=== PATIENT | male | born 1955 | race Caucasian/White ===

== ENCOUNTER 2020-10-15 07:28 | Emergency (ER) | payer SELFPAY ==
[~2020-10-15] VITALS: Ht 172.7 cm; Wt 68.0 kg
--- NOTE | 2020-10-15 07:29 | NUR ---
PT BIBA TO BED 08.
[2020-10-15 07:36] VITALS: BP 187/92
--- NOTE | 2020-10-15 07:41 | NUR ---
[facility] [address] C/O "HYPOGLYCEMIA". BS 181 ON SCENE AFTER BYSTANDER GAVE HIM JUICE AND CANDY Hx HTN (TAKES LISINOPRIL), DM, CHRONIC BACK PAIN, INTRAVENOUS DRUG ABUSE (CURRENTLY GOING TO [facility])
--- NOTE | 2020-10-15 08:52 | NUR ---
PT GIVEN BUS PASS AND W/C ASSISTED TO BUS.
[2020-10-15 09:03] VITALS: BP 187/92
--- NOTE | 2020-10-15 09:03 | NUR ---
Patient discharged with v/s stable. Written and verbal after care instructions given and explained. Patient verbalized understanding. Wheel Chair Assisted with steady gait. All questions addressed prior to discharge. Advised to follow up with PMD.
== END 2020-10-15 09:03 | disposition home or self-care (01) ==
LOC: MED 07:28
DX: E16.2 Hypoglycemia, unspecified (principal); I10 Essential (primary) hypertension; Z88.0 Allergy status to penicillin
CPT/HCPCS: 99281; 99283

== ENCOUNTER 2021-01-21 02:17 | Inpatient (IN) | payer MEDICAID, SELFPAY ==
[~2021-01-21] VITALS: Ht 177.8 cm; Wt 59.0 kg
--- NOTE | 2021-01-21 02:21 | NUR ---
PT BIBA TO BED 05.
[2021-01-21] MEDS ORDERED: DEXTROSE 50% 50 ML SYR IVP ONE ×5 (02:25→07:00)
[2021-01-21 02:29] VITALS: BP 160/68
[2021-01-21] MEDS ORDERED: NACL 0.9% 1,000 ML IV ONE ×2 (02:30)
--- NOTE | 2021-01-21 02:30 | NUR ---
PATIENT BIBA FOR S.I. AND INGESTING "20 BAGS OF HEROIN." PER PD, PATIENT STATED "I'D RATHER THAN GO TO SENIOR CARE." PATIENT WAS NOT PLACED ON 5150 AT THIS TIME. PATIENT ADMITS TO INGESTING "20 BAG OF HEROIN BECUASE I DIDNT WANT TO GO TO SENIOR CARE." PATIENT REPORTS NAUSEA, DENIES VOMITING. PATIENT DENIES PAIN. PATIENT DENIES FEVER, CHILLS, CP, SOB. [facility] REPORTS BLOOD SUGAR 61. PATIENTS SKIN IS WARM, DRY AND INTACT. CAP REFILL < 3 SECONDS. NO JVD NOTED. PATIENT A & O X4 AND COOPERATIVE. PATIENT PLACED IN GOWN AND CONNECTED TO MONITOR. HOB ELEVATED FOR COMFORT. BED LOCKED AND IN LOWEST POSITION. SEE COMPLETE ASSESSMENT FOR FURTHER DETAILS. MED HX: R.A., DM, HTN, SCHIZOPHRENIA ALLERGIES: PENICILLINS
--- NOTE | 2021-01-21 02:47 | NUR ---
LANCE COLLECTED, RESULTS WERE REPORTED TO DR. BEST
--- NOTE | 2021-01-21 02:50 | NUR ---
BS 61, hypoglycemic protocol initiated. given d50 amp for pt.
[2021-01-21 02:56] LABS: BASOPHILS % (AUTO) 0.6 % (0.0-2.0); EOSINOPHILS # (AUTO) 0.2 K/uL (0-0.4); EOSINOPHILS % (AUTO) 3.2 % (0.0-4.0); HEMATOCRIT 34.3 % (36-52); HEMOGLOBIN 11.3 g/dL (12.0-18.0); LYMPHOCYTES # (AUTO) 2.1 K/uL (2.0-11.5); LYMPHOCYTES % (AUTO) 44.9 % (20.5-51.1); MEAN CORPUSCULAR HEMOGLOBIN 31 pg (27-31); MEAN CORPUSCULAR HGB CONC 33 g/dL (33-37); MEAN CORPUSCULAR VOLUME 93.3 fL (80-94); MONOCYTES # (AUTO) 0.5 K/uL (0.8-1.0); NEUTROPHILS % (AUTO) 41.3 % (42.2-75.2); PLATELET COUNT (AUTO) 193 K/uL (140-450); RED BLOOD CELL COUNT(AUTO) 3.67 MIL/uL (4.20-6.10); RED CELL DISTRIBUTION WIDTH 14.5 % (11.6-13.7); WHITE BLOOD COUNT (AUTO) 4.8 K/uL (4.8-10.8)
--- NOTE | 2021-01-21 03:00 | NUR ---
JESSICA OF [facility] COLLECTED AND TAKEN TO LAB.
--- NOTE | 2021-01-21 03:08 | NUR ---
AT THIS TIME, PATIENT DENIES INTENT TO HARM SELF AND DENIES PLAN TO COMMIT SUICIDE.
[2021-01-21 03:14] LABS: ALBUMIN 2.9 g/dL (3.4-5.0); ANION GAP 8.5 (8-16); ASPARTATE AMINOTRANSFERASE 58 U/L (15-37); CHLORIDE 106 mmol/L (98-107); CREATININE 1.1 mg/dL (0.6-1.3); GFR ARICAN-AMERICAN 86 mL/min (>90); GLUCOSE 212 mg/dL (74-106); POTASSIUM 3.5 mmol/L (3.5-5.1); SODIUM SERUM 139 mmol/L (136-145); TOTAL BILIRUBIN 0.4 mg/dL (0.0-1.0); UREA NITROGEN, BLOOD 21 mg/dL (7-18)
[2021-01-21 03:15] LABS: ACETAMINOPHEN < 0.5 ug/ml (10-30)
[2021-01-21 03:25] LABS: BARBITURATE, URINE NEGATIVE ng/ml (NEG <=200); BENZODIAZEPINE, URINE POSITIVE ng/mL (NEG <=200); CANNABINOID, URINE NEGATIVE ng/mL (NEG <=50); COCAINE, URINE NEGATIVE ng/mL (NEG <=300); OPIATE, URINE POSITIVE ng/mL (NEG <=2000); PHENCYCLIDINE SCREEN,URINE POSITIVE ng/mL (NEG <=25)
--- NOTE | 2021-01-21 05:07 | NUR ---
SPOKE WITH GRETEL, FOUNDATION DRILL OPERATOR FROM [facility] AND ANSWERED ALL QUESTIONS APPROPRIATELY.
[2021-01-21] MEDS ORDERED: LISI40TA12 PO (05:27)
[2021-01-21] MEDS ORDERED: ASPI-1129 PO (05:27)
--- NOTE | 2021-01-21 05:27 | NUR ---
MEDICATIONS RECONCILED. PATIENT REPORTS THAT HE TAKES A BLOOD PRESSURE MEDICATION DAILY, BUT DOES NOT REMEMBER THE NAME.
[2021-01-21] MEDS ORDERED: DEXT 5% / NACL 0.9% 1,000 ML IV SCH (06:00)
--- NOTE | 2021-01-21 06:05 | NUR ---
PATIENT MADE FAMILY AWARE OF HOSPITAL ADMISSION.
--- NOTE | 2021-01-21 06:15 | NUR ---
RECEIVED REPORT FROM ER NURSE, JAMAR. WILL WAIT FOR PT TO ARRIVE TO UNIT.
--- NOTE | 2021-01-21 06:20 | NUR ---
MD JOANNA ARELLANO MADE AWARE, NEW ORDERS RECIEVED.
[2021-01-21] MEDS ORDERED: DEXTROSE 50% 50 ML SYR IVP SCH (06:30)
--- NOTE | 2021-01-21 06:30 | NUR ---
Patient will be admitted to care of MD JOANNA. Admited to [facility]. Will go to room 112A. Belongings list completed. Report to TIM WEAVER.
--- NOTE | 2021-01-21 06:35 | NUR ---
PT ARRIVED TO UNIT VIA WHEELCHAIR. PT IS AWAKE AND ALERT. AMBULATED TO BED WITH SEVERE KYPHOSIS. A&OX4. ANSWERS QUESTIONS APPROPRIATELY. ON RA WITH BREATHING UNLABORED. NO SIGNS OF DISTRESS. PT DENIES PAIN. IV FLUIDS ARE INFUSING. SKIN IS WARM, DRY, AND INTACT. PT IS STABLE. PLAN OF CARE DISCUSSED.
[2021-01-21 06:48] VITALS: BP 159/61
--- NOTE | 2021-01-21 07:25 | NUR ---
ENDORSED PT TO DAY SHIFT NURSE FOR CONTINUITY OF CARE. PT IS STABLE AT THIS TIME. PLAN OF CARE DISCUSSED.
--- NOTE | 2021-01-21 07:26 | NUR ---
Pt sitting up at edge of bed, aaox3, respirations even & nonlabored in room air, no c/o discomfort. RN instructed patient to call staff for assistance with toileting. Patient verbalized understanding and agree with care plan. Bed alarm on. Call light within reach.
[2021-01-21] MEDS ORDERED: INSULIN LISPRO SLIDING SCALE 100 UNITS/ML VIAL SUBQ SCH (07:30)
[2021-01-21] MEDS ORDERED: POTASSIUM CHLORIDE 40 MEQ, LIDOCAINE MPF 1% 25 MG in NACL 0.9% 250 ML IV PRN (07:45)
[2021-01-21] MEDS ORDERED: DOCUSATE SODIUM 100 MG GELCAP PO PRN (07:45)
[2021-01-21] MEDS ORDERED: HYDROcodone/APAP 7.5/325 MG 1 TAB PO PRN (07:45)
[2021-01-21] MEDS ORDERED: ONDANSETRON 4 MG/2 ML VIAL IM/IVP PRN (07:45)
[2021-01-21] MEDS ORDERED: hydrALAZINE 20 MG/ML VIAL IVP PRN (07:45)
[2021-01-21] MEDS ORDERED: guaiFENesin DM 200/20 MG-10 ML 10 ML UDC PO PRN (07:45)
[2021-01-21] MEDS ORDERED: ZOLPIDEM 5 MG TAB PO PRN (07:45)
[2021-01-21] MEDS ORDERED: ACETAMINOPHEN 325 MG TAB PO PRN (07:45)
--- NOTE | 2021-01-21 08:45 | NUR ---
[employer] reports patient was heard talking on his celphone and planning to elope. Margarette, security escort notified and spoke with patient. Dr Esparza notified as well and saw patient. Pt's belongings including clothes and celphone kept with security dept.
[2021-01-21] MEDS ORDERED: PANTOPRAZOLE 40 MG INJ VIAL IVP SCH (09:00)
--- NOTE | 2021-01-21 09:05 | NUR ---
Patient pulled out his IV stating that it bothers him. Left upper arm with min bleeding, site covered with gauze and tape.
--- NOTE | 2021-01-21 09:15 | NUR ---
During transfer from room 112A to 122A, patient suddenly stood up from wheelchair and ran out the emergency exit by room 118. Security team paged. Unable to locate patient.
[2021-01-21 09:22] LABS: CHOL/HDL RATIO 2.6 (1-4.5); FREE T4 (FREE THYROXINE) 1.03 ng/dL (0.76-1.46); MAGNESIUM 1.9 mg/dL (1.8-2.4); PHOSPHORUS 3.4 mg/dL (2.5-4.9); THYROID STIMULATING HORMONE 1.43 uIU/mL (0.34-3.74)
--- NOTE | 2021-01-21 09:25 | NUR ---
Called Tiffani RAMOS and notified of patient elopement.
[2021-01-21 16:12] LABS: BARBITURATE, URINE NEGATIVE ng/ml (NEG <=200); BENZODIAZEPINE, URINE POSITIVE ng/mL (NEG <=200); CANNABINOID, URINE NEGATIVE ng/mL (NEG <=50); COCAINE, URINE NEGATIVE ng/mL (NEG <=300); PHENCYCLIDINE SCREEN,URINE POSITIVE ng/mL (NEG <=25)
[2021-01-21 16:13] LABS: OPIATE, URINE POSITIVE ng/mL (NEG <=2000)
[2021-01-22 06:07] LABS: T4 (THYROXINE) 8.4 ug/dL (4.5-12.0)
== END 2021-01-21 09:15 | disposition left against medical advice (07) | DRG 52 ==
LOC: MED 02:17 → MTU 05:59
PROVIDERS: ADMIT Family Medicine; ATTEND Family Medicine
DX: G92 Toxic encephalopathy (principal); J96.00 Acute respiratory failure, unspecified whether with hypoxia or hypercapnia; F20.9 Schizophrenia, unspecified; R45.851 Suicidal ideations; E11.9 Type 2 diabetes mellitus without complications; D64.9 Anemia, unspecified; T18.9XXA Foreign body of alimentary tract, part unspecified, initial encounter; M06.9 Rheumatoid arthritis, unspecified; Z20.822 Contact with and (suspected) exposure to COVID-19; F19.10 Other psychoactive substance abuse, uncomplicated; I10 Essential (primary) hypertension; Z88.0 Allergy status to penicillin; Z53.29 Procedure and treatment not carried out because of patient's decision for other reasons; Y92.89 Other specified places as the place of occurrence of the external cause
CPT/HCPCS: 36415; 36600; 71045; 80053; 80305; 82150; 82803; 83036; 83690; 83735; 83880; 84100; 84436; 84439; 84443; 84479; 84484; 85025; 85610; 85730; 87081; 96361; 96374; 96376; 99285; G0480; G0482

== ENCOUNTER 2021-01-21 09:59 | Inpatient (IN) | payer MEDICAID ==
[~2021-01-21] VITALS: Ht 177.8 cm; Wt 62.6 kg
--- NOTE | 2021-01-21 09:30 | NUR ---
RECEIVED PTAAOX4 , ALTHOUGH STILL W/ EPISODE OFG ON AND OFF EASILY FORGOT THE TOPIC OF CONVERSATION - ALTHOUGH FOLLOW A SIMPLE COMMAND . IV SITE INTACT AND PATENT . DENIES ANY PAIN AT THIS TIME . 5150 - HOLD - ON 1: 1 SITTER . SAFETY MEASURES IN PLACE . ON TELE MONITOR. WILLL CONT.TO MONITOR . WILL REFER TO MD ABOUT THE BLOOD SUGAR CHECK AND IVF.
[2021-01-21 09:59] VITALS: BP 151/88
[~2021-01-21 09:59] MED LIST: ASPI-1129 PO; LISI40TA12 PO
--- NOTE | 2021-01-21 09:59 | NUR ---
Pt taken to ER bed 9.
--- NOTE | 2021-01-21 10:04 | NUR ---
65 Y/O MALE ELOPED FROM [facility] THIS AM BECAUSE HE WAS UPSET THAT HE WANTED TO EAT BUT WAS SCHEDULED TO HAVE HIS STOMACH PUMPED AND WAS KEPT NPO. [facility] CALLED PD AND WAS FOUND ON CORNER OF [facility]. EMS ARRIVED ON SCENE AND BROUGHT PATIENT BACK STATING HE WANTED TO GET HIS STOMACH PUMPED. PMH: HEROIN USE ALLERGIES: PCN
[2021-01-21] MEDS ORDERED: ZOLPIDEM 5 MG TAB PO PRN (10:30)
[2021-01-21] MEDS ORDERED: KCL 20 MEQ/WATER INJ PREMIX 200 ML IV PRN (10:30)
[2021-01-21] MEDS ORDERED: ACETAMINOPHEN 325 MG TAB PO PRN (10:30)
[2021-01-21] MEDS ORDERED: guaiFENesin DM 200/20 MG-10 ML 10 ML UDC PO PRN (10:30)
[2021-01-21] MEDS ORDERED: DOCUSATE SODIUM 100 MG GELCAP PO PRN (10:30)
--- NOTE | 2021-01-21 10:38 | NUR ---
PT TAKEN TO CT VIA RLUCIO.
--- NOTE | 2021-01-21 10:43 | NUR ---
Pt brought back from CT via gurney to ER bed 9.
--- NOTE | 2021-01-21 13:13 | NUR ---
Gave report to TIM Pickett. Transfer of care at this time.
--- NOTE | 2021-01-21 13:30 | NUR ---
Patient admitted from ED to room 122A via gurney. Pt hunched over when ambulating from gurney to bed. Pt states he always "walk that way". He is aaox4, no c/o pain/discomfort, respirations even & nonlabored. Oriented to room and unit. Sitter Ivonne at bedside for continuous monitoring.
--- NOTE | 2021-01-21 13:31 | NUR ---
Patient will be admitted to care of Dr. Zeke Esparza. Admited to tele. Will go to room 122. Belongings list completed. Report to TIM Pickett.
[2021-01-21 14:00] VITALS: BP 139/74
[2021-01-21] MEDS ORDERED: NALOXONE 0.4 MG/ML VIAL IVP PRN (14:25)
--- NOTE | 2021-01-21 14:29 | NUR ---
PATIENT HAS BEEN SCREENED AND CATEGORIZED LOW NUTRITION RISK. PATIENT WILL BE SEEN WITHIN 7 DAYS OF ADMISSION. 01/27/[address]
[2021-01-21] MEDS ORDERED: MAGNESIUM HYDROXIDE 2400 MG/30 ML UDC PO SCH (14:30)
[2021-01-21 16:00] VITALS: BP 163/70
--- NOTE | 2021-01-21 16:00 | NUR ---
Dr Esparza notified of BP 163/70 P 68. Pt asymptomatic at this time, denies and headache, nausea, vision changes. Per Dr Esparza, no new med orders and continue to monitor patients for symptoms.
--- NOTE | 2021-01-21 18:30 | NUR ---
Patient transferred from room 122B to 109A. Pt able to amb to wheelchair, then wheelchair back to bed. AAOx4, able to follow commands and respond to questions appropriately.
--- NOTE | 2021-01-21 18:52 | NUR ---
Patient with episode of 1 watery brown stool. No foreign bodies found. Pt denies any abd discomfort.
[2021-01-21 20:00] VITALS: BP 109/70
--- NOTE | 2021-01-21 20:30 | NUR ---
REQUESTING HE DON'T LIKE TO HAVE ANYTHING WILL CONNECT TO HIS IV CANULLA - REFUSED BLOOD SUGAR INTACT TOO .WILLL ENDORSE .
[2021-01-21] MEDS: POLYETHYLENE GLYCOL 17 GM/PKT PO SCH (21:43)
[2021-01-22] VITALS: BP 122/70
--- NOTE | 2021-01-22 | NUR ---
MADE ROUNDS , NO S/SX OF ACUTE DISTRESS NOTED . O2 SAT WNL . ON TELE MONITOR .
--- NOTE | 2021-01-22 00:19 | NUR ---
PATIENT MADE AWARE THAT MD ORDERED DULCOLAX SUPPOSITORY FOR BM. WANTS TO SLEEP FIRST AND WILL TAKE MEDICATION LATER.
--- NOTE | 2021-01-22 02:00 | NUR ---
SLEEPING AWAKEABLE . ON TELE MONITOR . WILL CONT. TO MONITOR .
[2021-01-22 04:00] VITALS: BP 131/63
--- NOTE | 2021-01-22 04:00 | NUR ---
WENT TO THE [facility] HAD BM LARGE STOOL , NO PILLS NOTED - WILL CONVINCE THE PT FOR BLOOD SUGAR CHECK AND IVF . - WILL INFORM THE CHARGE NURSE ABOUT THE REFUSAL
--- NOTE | 2021-01-22 06:04 | NUR ---
BLOOD SUGAR CHECK 80 .
[2021-01-22] MEDS ORDERED: INSULIN LISPRO SLIDING SCALE 100 UNITS/ML VIAL SUBQ PRN (06:15)
[2021-01-22] MEDS ORDERED: DEXTROSE 50% 50 ML SYR IVP PRN (06:15)
--- NOTE | 2021-01-22 06:19 | NUR ---
PER DR. NELSON MAY FEED PT AFTER US ABD. - IF PT IS AWAKE AND ALERT . WILLL ENDORSE.
--- NOTE | 2021-01-22 07:02 | NUR ---
SLEEPING , AWAKEABLE , ON TELE MONITOR . 1 ; 1 SITTER .
--- NOTE | 2021-01-22 07:35 | NUR ---
ENDORSED - PT - STABLE . Addendum: 01/22/21 at 0737 by Gloria Vee RN ENDORSE TO AM NURSE TO FEED PT ONCE US ABD DONE - I TOLD TO AM NURSE TO FF UP THE DIET ORDER FROM DR. NELSON .
--- NOTE | 2021-01-22 07:47 | NUR ---
RECEIVED REPORT FORM MANUFACTURING QUALITY INSPECTOR NURSE AT BED SIDE. PATIENT IN BED SLEEPING. ALERT AND ORIENTED X 4.RESPIRATION EVEN AND UNLABORED AT ROOM AIR. IV LINE ON NEHA 18G WITH NS AT 60ML /HR. SAFETY PRECAUTION IN PLACE. WILL CONTINUE TO MONITOR PATIENT.
[2021-01-22 08:00] VITALS: BP 125/56
[2021-01-22] MEDS: BLOOD GLUCOSE MONITORING 1 DEV DEV FS SCH ×3 (08:00→16:37)
[2021-01-22] MEDS: NACL 0.9% 1,000 ML IV SCH ×3 (08:00→22:54)
[2021-01-22] MEDS: PANTOPRAZOLE 40 MG INJ VIAL IVP SCH (09:22)
[2021-01-22] MEDS: POLYETHYLENE GLYCOL 17 GM/PKT PO SCH ×2 (09:28→20:42)
[2021-01-22 09:43] LABS: BASOPHILS # (AUTO) 0.1 K/uL (0.00-0.22); BASOPHILS % (AUTO) 1.2 % (0.0-2.0); EOSINOPHILS # (AUTO) 0.1 K/uL (0-0.4); EOSINOPHILS % (AUTO) 2.5 % (0.0-4.0); HEMATOCRIT 34.6 % (36-52); HEMOGLOBIN 11.5 g/dL (12.0-18.0); LYMPHOCYTES # (AUTO) 1.7 K/uL (2.0-11.5); LYMPHOCYTES % (AUTO) 34.5 % (20.5-51.1); MEAN CORPUSCULAR HEMOGLOBIN 31 pg (27-31); MEAN CORPUSCULAR HGB CONC 33 g/dL (33-37); MEAN CORPUSCULAR VOLUME 92.6 fL (80-94); MONOCYTES # (AUTO) 0.3 K/uL (0.8-1.0); MONOCYTES % (AUTO) 5.2 % (1.7-9.3); NEUTROPHILS # (AUTO) 2.8 K/uL (1.8-7.7); NEUTROPHILS % (AUTO) 56.6 % (42.2-75.2); PLATELET COUNT (AUTO) 181 K/uL (140-450); RED BLOOD CELL COUNT(AUTO) 3.74 MIL/uL (4.20-6.10); RED CELL DISTRIBUTION WIDTH 14.8 % (11.6-13.7)
[2021-01-22 09:56] LABS: ALBUMIN 3.3 g/dL (3.4-5.0); ANION GAP 11.5 (8-16); CARBON DIOXIDE 28.3 mmol/L (21-32); CREATININE 0.8 mg/dL (0.6-1.3); POTASSIUM 3.8 mmol/L (3.5-5.1); TOTAL BILIRUBIN 0.6 mg/dL (0.0-1.0)
--- NOTE | 2021-01-22 10:00 | NUR ---
PT IS RESTING ON THE BED, SITTER ON BEDSIDE.
[2021-01-22 12:00] VITALS: BP 137/66
--- NOTE | 2021-01-22 13:00 | NUR ---
PATIENT SITTING ON BED DENIED PAIN AT THIS TIME.WELL CONTINUE TO MONITOR PATIENT.
[2021-01-22 16:00] VITALS: BP 106/64
--- NOTE | 2021-01-22 16:00 | NUR ---
VITAL SIGNS TAKEN RESPIRATION EVEN AND UNLABORED AT ROOM AIR , PATIENT VERBALIZED NO NEED AT THIS TIME. WELL CONTINUE TO MONITOR PATIENT.
--- NOTE | 2021-01-22 16:00 | NUR ---
BLOOD GLUCOSE CHECKED 136 ,NO COVERAGE NEEDED. WELL CONTINUE TO MONITOR PATIENT.
--- NOTE | 2021-01-22 17:50 | NUR ---
PATIENT SISTER MEG CALLED, SPOKE WITH PATIENT AND PATIENT WAS SITTING ON BED HE WAS ABLE TO COMMUNICATE TO HIS SISTER.
--- NOTE | 2021-01-22 17:52 | NUR ---
CALLED ADMITTING AND SPOKE TO CALI AND INFORMED THAT PT WANTS HIS SISTER, MEG HAILE TO BE THE STARCHMAKER # [phone] AND BE PLACED ON HIS FILE.
--- NOTE | 2021-01-22 19:14 | NUR ---
ENDORSED PATIENT TO DIRECTOR PEOPLESOFT FOR CONTINUE OF CARE . PATIENT IS IN STABLE CONDITION AT THIS TIME.
--- NOTE | 2021-01-22 19:15 | NUR ---
RECD. SLEEPING IN BED, EASILY WAKES UP WHEN NAME CALLED. A/OX3. WHEN INQUIRED IF HE HAS THOUGHTS OF HURTING SELF OR OTHERS, STATED "NO". VERBALIZED FEELING DEPRESSED. IV OF NS INFUSING AT 60 ML/HR, LEFT UPPER ARM G18. SAFETY MEASURES ENFORCED. BED IN THE LOWEST POSITION. SIDE RAILS UP. ON 1:1 SITTER. DENIES PAIN, 0/10. WENT BACK TO SLEEP AFTER ANSWERING FEW QUESTIONS. WILL CONTINUE TO MONITOR FOR SAFETY.
[2021-01-22 20:00] VITALS: BP 148/62
--- NOTE | 2021-01-22 21:42 | NUR ---
SCHEDULED MEDICATIONS GIVEN. WANTS TO HAVE BM BUT UNABLE TO HAVE ONE. 2 PRUNE JUICES GIVEN IN ADDITION TO THE STOOL SOFTENERS.
--- NOTE | 2021-01-22 22:00 | NUR ---
Patient's Plan of Care was discussed and reviewed with RIVET HAMMER MACHINE OPERATOR: GRACIA CARRANZA
--- NOTE | 2021-01-22 22:30 | NUR ---
ASSISTED TO AMBULATE TO THE CR. SAFETY MAINTAINED.
--- NOTE | 2021-01-22 22:45 | NUR ---
ABLE TO PASSED A SMALL FORMED BM. VERBALIZED HE WANTS A STRONGER MEDICATION FOR BM SO THAT HE WILL BE ABLE TO PASSED THE BALLOONS THAT HE SWALLOWED. WILL INFORM MD.
[2021-01-22] MEDS: HYDROcodone/APAP 7.5/325 MG 1 TAB PO PRN (22:49)
--- NOTE | 2021-01-22 22:50 | NUR ---
UNABLE TO SLEEP, MEDICATED WITH AMBIEN PER MD ORDER.
--- NOTE | 2021-01-22 23:00 | NUR ---
INFORMED DR. NELSON PATIENT WAS MEDICATED WITH MIRALX, COLACE ANG GIVEN 2 PRUNE JUICE BUT ONLY ABLE TO PASSED A SMALL FORMED BM, PT WANTS STRONGER MEDICATION TO HAVE BM. ORDERED DULCOLAX SUPPOSITORY.
[2021-01-22] MEDS ORDERED: bisacodyL 10 MG SUPP RC ONE (23:10)
[2021-01-23] VITALS: BP 131/60
--- NOTE | 2021-01-23 | NUR ---
SLEEPING COMFORTABLY IN BED.
[2021-01-23] MEDS ORDERED: bisacodyL 10 MG SUPP RC ONE (00:23)
--- NOTE | 2021-01-23 01:20 | NUR ---
MEDICATAED WITH DULCOLAX SUPPOSITORY PER MD ORDER.
--- NOTE | 2021-01-23 02:00 | NUR ---
SLEEPING COMFORTABLY IN BED.
[2021-01-23 04:00] VITALS: BP 142/50
--- NOTE | 2021-01-23 04:00 | NUR ---
IV ACCIDENTALLY PULLED OUT. REFUSED NEW IV INSERTION> STATED "I DON'T THINK i NEED IT." EXPLAINED THE ADVANTAGE OF HAVING IV LINE BUT STILL REFUSED.
[2021-01-23] MEDS: HYDROcodone/APAP 7.5/325 MG 1 TAB PO PRN ×4 (04:17→23:46)
--- NOTE | 2021-01-23 06:00 | NUR ---
AMBULATED TO BR TO HAVE BM. PASSED A LOT OF GAS. BM LOOKS LIKE SMALL BROWN PILLETS AROUND FIVE PIECES.
--- NOTE | 2021-01-23 06:30 | NUR ---
WENT BACK TO SLEEP.
--- NOTE | 2021-01-23 07:15 | NUR ---
ENDORSED TO AM SHIFT NURSE FOR CONTINUITY OF CARE. NEW SITTER MONITORING PATIENT NEAR DOOR.
--- NOTE | 2021-01-23 07:35 | NUR ---
RECEIVED REPORT FORM MANAGER AREA NURSE AT BED SIDE. PATIENT IN BED SLEEPING. ALERT AND ORIENTED X 4.RESPIRATION EVEN AND UNLABORED AT ROOM AIR. NO IV LINE PATIENT REFUSED MD INFORMED . SAFETY PRECAUTION IN PLACE BED IN LOWER POSITION .CALL LIGHT WITHIN REACH. WILL CONTINUE TO MONITOR PATIENT.
[2021-01-23 08:00] VITALS: BP 126/59
[2021-01-23] MEDS: POLYETHYLENE GLYCOL 17 GM/PKT PO SCH ×2 (08:53→21:09)
[2021-01-23] MEDS: ECOTRIN 81 MG TABEC PO SCH (08:53)
[2021-01-23] MEDS: lisinopriL 20 MG TAB PO SCH (08:53)
--- NOTE | 2021-01-23 08:53 | NUR ---
LESLIE LE WAS NOTIFIED THAT PT HAS NO IV LINE AND PT IS REFUSING TO HAVE ANOTHER IV LINE INSERTION, SCHEDULED IV PROTONIX WAS NOT GIVEN, MADE A TELEPHONE ORDER TO CHANGE PROTONIX TO PO DAILY.
[2021-01-23] MEDS: PANTOPRAZOLE 40 MG INJ VIAL IVP SCH (09:00)
--- NOTE | 2021-01-23 09:09 | NUR ---
SCHEDULE MEDICATION GIVEN PER MD ORDERED. PATIENT ALERT AND AWAKE SITTING ON BED C/O BACK PAIN 04/26/NORCO PRN MEDICATION GIVEN. PLT TOLERATED WELL. PANTOPRAZOLE NOT GIVEN DUE TO NO IV LINE PATIENT REFUSED TO HAVE IV LINE MD INFORMED .
[2021-01-23 10:15] LABS: BASOPHILS % (AUTO) 0.3 % (0.0-2.0); EOSINOPHILS # (AUTO) 0.1 K/uL (0-0.4); EOSINOPHILS % (AUTO) 1.6 % (0.0-4.0); HEMATOCRIT 33.2 % (36-52); HEMOGLOBIN 11.4 g/dL (12.0-18.0); LYMPHOCYTES # (AUTO) 1.6 K/uL (2.0-11.5); LYMPHOCYTES % (AUTO) 28.4 % (20.5-51.1); MEAN CORPUSCULAR HEMOGLOBIN 31 pg (27-31); MEAN CORPUSCULAR HGB CONC 34 g/dL (33-37); MEAN CORPUSCULAR VOLUME 91.6 fL (80-94); MONOCYTES # (AUTO) 0.5 K/uL (0.8-1.0); MONOCYTES % (AUTO) 8.4 % (1.7-9.3); NEUTROPHILS # (AUTO) 3.5 K/uL (1.8-7.7); NEUTROPHILS % (AUTO) 61.3 % (42.2-75.2); PLATELET COUNT (AUTO) 187 K/uL (140-450); RED BLOOD CELL COUNT(AUTO) 3.62 MIL/uL (4.20-6.10); RED CELL DISTRIBUTION WIDTH 14.2 % (11.6-13.7); WHITE BLOOD COUNT (AUTO) 5.7 K/uL (4.8-10.8)
[2021-01-23] MEDS: PANTOPRAZOLE 40 MG TABEC PO SCH (10:20)
--- NOTE | 2021-01-23 10:26 | NUR ---
PROTONIX 40MG PO GIVEN PER MD ORDERED. PATIENT TOLERATED WELL.
[2021-01-23 10:28] LABS: ALBUMIN 2.6 g/dL (3.4-5.0); ANION GAP 8.6 (8-16); CARBON DIOXIDE 29.4 mmol/L (21-32); CREATININE 0.8 mg/dL (0.6-1.3); TOTAL BILIRUBIN 0.3 mg/dL (0.0-1.0)
[2021-01-23] MEDS: ONDANSETRON 4 MG/2 ML VIAL IM/IVP PRN ×2 (12:15→16:50)
--- NOTE | 2021-01-23 12:16 | NUR ---
ZOFRAN 4 MG /2ML IM GIVEN ON RD FOR C/O NAUSEA PER MD ORDERED. PATIENT TOLERATED WELL.
[2021-01-23] MEDS: ARIPiprazole 10 MG TAB PO SCH (12:26)
[2021-01-23 12:48] VITALS: BP 129/63
--- NOTE | 2021-01-23 13:15 | NUR ---
PT HAD A BOWEL MOVEMENT AND FECES WAS CHECKED AND FOUND 2 SIERRA AND 1 WHITE PILL AND A 1CH BIG RUBBERIZED OBLONG SHAPED THING.
[2021-01-23] MEDS: NACL 0.9% 1,000 ML IV SCH (15:35)
--- NOTE | 2021-01-23 15:54 | NUR ---
PT WENT OUT OF THE ROOM NOW AND IS VERBALIZING THAT HE WANTS TO LEAVE AND WANTS TO HAVE HIS METHADONE. PT WAS NOTIFIED THAT MD WILL BE INFORMED.
[2021-01-23 16:00] VITALS: BP 139/65
[2021-01-23] MEDS: LORazepam 2 MG/ML VIAL IM/IVP PRN (16:49)
--- NOTE | 2021-01-23 16:55 | NUR ---
ADMINISTER ZOFRAN 4MG IM FOR NAUSEA AND ATIVAN 1MG IM FOR PATIENT IS AGITATIVE. PT IS LAYING ON BED . BED IN LOWER POSITION CALL LIGHT WITHIN REACH .WILL CONTINUE TO MONITOR PATIENT.
--- NOTE | 2021-01-23 19:00 | NUR ---
EDNORSED PT TO [facility] SHIFT NURSEGRACIA FOR CONTINUITY OF CARE, 1:1 SITTER ON BEDSIDE.
--- NOTE | 2021-01-23 19:01 | NUR ---
RECD. RESTING IN BED, SLEEPING BUT EASILY AROUSABLE. RESPIRATION EVEN AND UNLABORED. DENIES PAIN 0/10. AMBULATORY TO THE BATHROOM BY HIMSELF. VOIDING USING THE URINAL. NO IV LINE STILL REFUSING NEW IV INSERTION. 1:1 SITTER MONITORING PATIENT BEHAVIOR FOR ANY SIGNS OF SUICIDAL ATTEMPT. WILL CONTINUE TO ENSURE SAFETY THROUGHOUT THE SHIT.
[2021-01-23 20:00] VITALS: BP 120/60
--- NOTE | 2021-01-23 21:09 | NUR ---
SCHEDULED MEDICATION FOR THE NIGHT GIVEN. WENT BACK TO SLEEP.
--- NOTE | 2021-01-23 22:00 | NUR ---
Patient's Plan of Care was discussed and reviewed with BRANCH MAKER: GRACIA CARRANZA
[2021-01-24] VITALS: BP 110/57
[2021-01-24] MEDS: LORazepam 2 MG/ML VIAL IM/IVP PRN ×2 (00:47→10:36)
--- NOTE | 2021-01-24 00:47 | NUR ---
WITH AGITATION, MEDICATED WITH ATIVAN IM PER MD ORDER.
--- NOTE | 2021-01-24 01:47 | NUR ---
NO AGITATION, SLEEPING COMFORTABLY IN BED.
[2021-01-24 04:00] VITALS: BP 113/56
--- NOTE | 2021-01-24 04:00 | NUR ---
SR ON TELEMONITORING, HR -62. WENT BACK TO SLEEP AGAIN AFTER VS TAKEN.
--- NOTE | 2021-01-24 05:30 | NUR ---
COOPERATIVE. ALLOWED HAND NAILER TO DO AM BLOOD DRAW, WENT BACK TO SLEEP
[2021-01-24 06:29] LABS: ALBUMIN 2.4 g/dL (3.4-5.0); ANION GAP 8.3 (8-16); CARBON DIOXIDE 30.8 mmol/L (21-32); CREATININE 0.8 mg/dL (0.6-1.3); POTASSIUM 4.1 mmol/L (3.5-5.1); TOTAL BILIRUBIN 0.3 mg/dL (0.0-1.0)
--- NOTE | 2021-01-24 06:30 | NUR ---
STILL SLEEPING COMFORTABLY, ABLE TO SLEEP WELL DURING THE SHIFT. CONDITION REMAIN STABLE.
[2021-01-24 06:41] LABS: BASOPHILS % (AUTO) 0.4 % (0.0-2.0); EOSINOPHILS # (AUTO) 0.1 K/uL (0-0.4); EOSINOPHILS % (AUTO) 1.9 % (0.0-4.0); HEMATOCRIT 31.8 % (36-52); HEMOGLOBIN 10.8 g/dL (12.0-18.0); LYMPHOCYTES % (AUTO) 37.4 % (20.5-51.1); MEAN CORPUSCULAR HEMOGLOBIN 31 pg (27-31); MEAN CORPUSCULAR HGB CONC 34 g/dL (33-37); MEAN CORPUSCULAR VOLUME 90.7 fL (80-94); MONOCYTES # (AUTO) 0.5 K/uL (0.8-1.0); MONOCYTES % (AUTO) 8.5 % (1.7-9.3); NEUTROPHILS # (AUTO) 2.8 K/uL (1.8-7.7); NEUTROPHILS % (AUTO) 51.8 % (42.2-75.2); PLATELET COUNT (AUTO) 173 K/uL (140-450); RED BLOOD CELL COUNT(AUTO) 3.51 MIL/uL (4.20-6.10); WHITE BLOOD COUNT (AUTO) 5.4 K/uL (4.8-10.8)
--- NOTE | 2021-01-24 07:25 | NUR ---
PT REPORT RECEIVED FROM BRAKE MECHANIC RN. PT RESTING IN BED EYES CLOSED. NO S/S OF DISTRESS AT THIS TIME. PT ABLE TO MAKE NEEDS KNOWN ALL SAFETY MEASURES ARE IN PLACE. SITTER AT BEDSIDE.
[2021-01-24 08:00] VITALS: BP 116/63
[2021-01-24] MEDS: NACL 0.9% 1,000 ML IV SCH (08:15)
[2021-01-24] MEDS: lisinopriL 20 MG TAB PO SCH (09:15)
[2021-01-24] MEDS: ECOTRIN 81 MG TABEC PO SCH (09:15)
[2021-01-24] MEDS: ARIPiprazole 10 MG TAB PO SCH (09:16)
[2021-01-24] MEDS: POLYETHYLENE GLYCOL 17 GM/PKT PO SCH (09:16)
[2021-01-24] MEDS: PANTOPRAZOLE 40 MG TABEC PO SCH (09:16)
--- NOTE | 2021-01-24 09:21 | NUR ---
MEDICATIONS GIVEN PER MD ORDER. PT EDUCATED AND VERBALIZED UNDERSTANDING. NO S/S OF DISTRESS AT THIS TIME.
[2021-01-24] MEDS: HYDROcodone/APAP 7.5/325 MG 1 TAB PO PRN (09:26)
--- NOTE | 2021-01-24 09:27 | NUR ---
PT COMPLAINS OF PAIN 6/10 IN BACK. PRN GIVEN PER MD ORDER. PT EDUCATED.
--- NOTE | 2021-01-24 10:22 | NUR ---
PT ANXIOUS PRN MEDICATION GIVEN. PT EDUCATED AND VERBALIZED UNDERSTANDING. Addendum: 01/24/21 at 1054 by Vangie Isaac RN RN PT UNCOOPERATIVE
--- NOTE | 2021-01-24 10:53 | NUR ---
PT REASSESSED. THERAPY WAS SUCCESSFUL PT IN BED RESTING CALMLY WITHOUT AGITATION OR DISTRESS. PT COOPERATIVE AND ABLE TO FOLLOW COMMANDS
[2021-01-24 12:31] VITALS: BP 116/63
--- NOTE | 2021-01-24 13:13 | NUR ---
PT DISCHARGE INSTRUCTIONS GIVEN. PT EDUCATED . SISTER CALLED FOR TRANSPORTATION. PT CLAIMED HE CANNOT WAIT FOR HER. PT WILL ARRANGE OWN TRANSPORTATION
--- NOTE | 2021-01-24 14:14 | NUR ---
PT LEFT IN WHEEL CHAIR. 2 BUS PASSES. SISTER CALLED FOR TRANSPORTATION BUT SHE WAS NOT AVAILABLE TO PICK HIM UP UNTIL 6 PM. PT DID NOT WANT TO WAIT.
== END 2021-01-24 14:20 | disposition home or self-care (01) | DRG 254 ==
LOC: MED 09:59 → MTU 10:33
PROVIDERS: ADMIT Family Medicine; ATTEND Family Medicine
DX: T18.9XXA Foreign body of alimentary tract, part unspecified, initial encounter (principal); J96.00 Acute respiratory failure, unspecified whether with hypoxia or hypercapnia; G92 Toxic encephalopathy; E44.1 Mild protein-calorie malnutrition; D64.9 Anemia, unspecified; E11.9 Type 2 diabetes mellitus without complications; F20.9 Schizophrenia, unspecified; K59.00 Constipation, unspecified; M06.9 Rheumatoid arthritis, unspecified; F11.10 Opioid abuse, uncomplicated; F32.9 Major depressive disorder, single episode, unspecified; R45.851 Suicidal ideations; I10 Essential (primary) hypertension; Z59.0 Homelessness; Z91.5 Personal history of self-harm; Z81.8 Family history of other mental and behavioral disorders; Z88.0 Allergy status to penicillin; Z79.899 Other long term (current) drug therapy; Z79.82 Long term (current) use of aspirin; Y92.89 Other specified places as the place of occurrence of the external cause; Y93.89 Activity, other specified; Y99.8 Other external cause status; Z68.1 Body mass index [BMI] 19.9 or less, adult; X83.8XXA Intentional self-harm by other specified means, initial encounter
CPT/HCPCS: 36415; 70450; 74018; 80053; 82948; 85025; 99284; C9113; J2060; J2405